=== PATIENT | male | born 1940 | race Caucasian/White ===

== ENCOUNTER 2019-04-27 16:38 | Inpatient (IN) | payer OTHER, MEDICARE ==
[~2019-04-27] VITALS: Ht 185.4 cm; Wt 101.6 kg
[2019-04-27 16:38] VITALS: BP_SYST 111
--- NOTE | 2019-04-27 16:38 | NUR ---
BROUGHT IN BY [facility], PLACED IN BED #3 AND TRIAGED. PT IS POOR HISORIAN AND SLOW TO RESPOND. REPORT GIVEN TO KEVIN
--- NOTE | 2019-04-27 16:40 | NUR ---
Pt bib EMS from home c/o ALOC and lethargy.Pt has elevated temp. Pt slow to respond to question , however follows commands.
[2019-04-27] MEDS ORDERED: ACETAMINOPHEN 650 MG SUPP.RECT RC ONE (17:00)
[2019-04-27] MEDS ORDERED: NS 1000 ML IV.SOLN IV ONE (17:00)
[2019-04-27 17:17] LABS: BASOPHILS % (AUTO) 0.5 % (0.0-2.0); EOSINOPHILS # (AUTO) 0.1 K/uL (0.0-0.4); EOSINOPHILS % (AUTO) 1.8 % (0.0-4.0); HEMATOCRIT 38.8 % (36-54); HEMOGLOBIN 13.3 g/dL (14.0-18.0); LYMPHOCYTES # (AUTO) 0.1 K/uL (1.0-5.5); LYMPHOCYTES % (AUTO) 1.9 % (20.5-51.5); MEAN CORPUSCULAR HEMOGLOBIN 34 pg (27-31); MEAN CORPUSCULAR HGB CONC 34 % (32-36); MEAN CORPUSCULAR VOLUME 99 fL (79.0-98.0); MONOCYTES # (AUTO) 0.3 K/uL (0.0-1.0); MONOCYTES % (AUTO) 4.2 % (1.7-9.3); NEUTROPHILS # (AUTO) 6.5 K/uL (1.8-7.7); NEUTROPHILS % (AUTO) 91.6 % (40.0-70.0); PLATELET COUNT (AUTO) 151 K/uL (130-430); RED BLOOD CELL COUNT(AUTO) 3.92 MIL/uL (4.2-6.2); RED CELL DISTRIBUTION WIDTH 13.4 % (9.0-15.0); WHITE BLOOD COUNT (AUTO) 7.1 K/uL (4.8-10.8)
[2019-04-27 17:26] LABS: ANION GAP 13 (5-15); CALCIUM 9.3 mg/dL (8.4-11.0); CHLORIDE 103 mmol/L (98-107); GLUCOSE 134 mg/dL (70-99); POTASSIUM 3.4 mmol/L (3.5-5.1); SODIUM SERUM 139 mmol/L (136-145); UREA NITROGEN, BLOOD 21 mg/dL (8-21)
[2019-04-27 17:32] LABS: ALANINE AMINOTRANSFERASE 17 U/L (12-78); ALBUMIN 3.6 g/dL (3.4-4.8); ASPARTATE AMINOTRANSFERASE 16 U/L (10-37); TOTAL BILIRUBIN 0.9 mg/dL (0.0-1.0)
--- NOTE | 2019-04-27 17:46 | NUR ---
Patient transported to radiology via gurney, accompanied by rad staff.
--- NOTE | 2019-04-27 17:51 | NUR ---
Returned from radiology, back to [facility].
--- NOTE | 2019-04-27 18:20 | NUR ---
Pt medicated with ABX.
[2019-04-27 18:43] LABS: BILIRUBIN,URINE NEGATIVE (NEGATIVE); BLOOD, URINE 2+ (NEGATIVE); CLARITY/URINE SL HAZY (CLEAR); COLOR,URINE YELLOW (YELLOW); GLUCOSE,URINE NEGATIVE (NEGATIVE); KETONES,URINE NEGATIVE (NEGATIVE); LEUKOCYTE ESTERASE ,URINE 2+ (NEGATIVE); NITRITE, URINE NEGATIVE (NEGATIVE); PH,URINE 5.5 (5.0-8.0); PROTEIN URINE NEGATIVE (NEGATIVE); UROBILINOGEN,URINE 0.2 (0.2-1.0)
[2019-04-27] MEDS ORDERED: PIPERACILLIN/TAZO 3.375 GM in NS 50 ML IV ONE (18:45)
[2019-04-27] MEDS ORDERED: VANCOMYCIN HCL 1,000 MG in NS 250 ML IV ONE (18:45)
[2019-04-27 19:00] LABS: BACTERIA,URINE FEW /HPF (None Seen); WBC,URINE 20-50 /HPF (0-3)
[2019-04-27 19:01] LABS: COARSE GRANULAR CASTS,URINE 0-10 /LPF (None Seen); MUCUS,URINE 1+ /LPF (None Seen)
[2019-04-27 19:02] LABS: BARBITURATE, URINE NEGATIVE (NEG <=200); BENZODIAZEPINE, URINE POSITIVE (NEG <=150); CANNABINOID, URINE NEGATIVE (NEG <=50); COCAINE, URINE NEGATIVE (NEG <=150); METHAMPHETAMINES SCREEN,URINE NEGATIVE (NEG <=500); OPIATE, URINE NEGATIVE (NEG <=100); PHENCYCLIDINE SCREEN,URINE NEGATIVE (NEG <=25); UR TRICYCLIC ANTIDEPRESSANTS NEGATIVE (NEG <=300); URINE AMPHETAMINE NEGATIVE (NEG <=500); URINE METHADONE NEGATIVE (NEG <=200); URINE OXYCODONE SCREEN NEGATIVE (NEG <=100); URINE PROPOXYPHENE SCREEN NEGATIVE (NEG <=300)
[2019-04-27] MEDS ORDERED: VANCOMYCIN HCL 1000 MG/VIAL IV ONE (19:11)
[2019-04-27] MEDS ORDERED: PIPERACILLIN/TAZOBACTAM 3.375 GM/VIAL (ZOSYN) IV ONE (19:12)
[2019-04-27] MEDS ORDERED: ASPI-1155 PO (19:25)
[2019-04-27] MEDS ORDERED: MIRA25TA PO (19:25)
[2019-04-27] MEDS ORDERED: LYR50 PO (19:25)
[2019-04-27] MEDS ORDERED: DULO60CA41 PO (19:25)
[2019-04-27] MEDS ORDERED: HYDR25TA4 PO (19:25)
[2019-04-27] MEDS ORDERED: NEBI5TAB3 PO (19:25)
--- NOTE | 2019-04-27 19:30 | NUR ---
Transfer to Telemetry via ACLS protocol. Licensed nurse present. IV present no signs or symptoms of infiltration.
--- NOTE | 2019-04-27 19:30 | NUR ---
Patient will be admitted to care of Dr. Limon. Admitted to Telemetry unit. Will go to room 105 B. Belongings list completed. Summary report printed. Report will be given at bedside.
--- NOTE | 2019-04-27 19:49 | NUR ---
ADMISSION NOTE Received patient from ER via gurney. Patient admitted with diagnosis of UTI & Urosepsis. Patient is awake, alert, oriented X 2. Patient oriented to hospital room, call light, toileting, pain management and safety-teach back done. Patient informed that PHOENIX Pérez will be primary nurse and that their room number is 105B. Personal belongings checked and Belongings List documented. Call light within reach.
[2019-04-27 19:50] VITALS: BP_SYST 114
--- NOTE | 2019-04-27 20:00 | NUR ---
INITIAL NOTE RECEIVED PATIENT AWAKE, ALERT BUT CONFUSED. FAMILY AT THE BEDSIDE. NO SOB NOTED. DENIES ANY PAIN OR N/V AT THIS TIME. UNABLE TO OBTAIN INFORMATION, WILL WAIT FOR PATIENT'S . RED DISCOLORATION NOTED ON LEFT GARCIA AND SACRAL REDNESS. TOOK PHOTO AND DOCUMENTED. ASSESSMENT DONE. BELONGINGS NOTED. F/C INTACT AND DRAINING WELL WITH ANEL COLORED URINE. ORIENTED TO ROOM, CALL LIGHT, HOSPITAL POLICIES, SAFETY AND FALL PRECAUTIONS. CALL LIGHT WITHIN REACH. BED ALARM ON AND AT LOWEST POSITION AT ALL TIMES. CARE AND MONITORING WILL BE PROVIDED. NEEDS ATTENDED. KEPT WARM AND COMFORTABLE.
--- NOTE | 2019-04-27 21:40 | NUR ---
IV OUT PATIENT PULLED OUT HIS IV LINE. PT NOT AWARE OF WHAT HAPPENED. NEW IV LINE PLACED ON LEFT HAND AND COVERED WITH KERLIX. PATIENT'S ARRIVED AND ABLE TO OBTAIN INFORMATION.
[2019-04-27] MEDS ORDERED: ONDANSETRON HCL 4 MG/2 ML VIAL IVP PRN (21:45)
[2019-04-27] MEDS ORDERED: KCL 20 mEq in 100 mL (PREMIX) 100 ML IV SCH (22:15)
[2019-04-27 22:18] VITALS: BP_SYST 114
--- NOTE | 2019-04-27 22:20 | NUR ---
MD ORDERS MD ORDERS NOTED. STARTED IVF AND DUE MEDS GIVEN. PATIENT'S AT THE BEDSIDE. ACCORDING TO THE , PATIENT IS ALERT AND ORIENTED AND HIS MIND IS SHARP PRIOR TO THIS ADMISSION. MADE HER AWARE OF THE PLAN TONIGHT AND TOMORROW. REPOSITIONED. KEPT WARM AND COMFORTABLE.
[2019-04-27] MEDS: FAMOTIDINE PF 20 MG/2 ML VIAL IVP SCH (22:23)
[2019-04-27] MEDS: NACL 0.9% 1,000 ML IV SCH (22:37)
--- NOTE | 2019-04-28 00:30 | NUR ---
RN NOTE PATIENT SLEEPING AT THIS TIME. NO SOB OR GRIMACING NOTED. IVF INFUSING.
[2019-04-28 00:47] VITALS: BP_SYST 143
[2019-04-28] MEDS ORDERED: PIPERACILLIN/TAZOBACTAM 2.25 GM VIAL IV ONE (01:22)
--- NOTE | 2019-04-28 01:30 | NUR ---
RN NOTE ASLEEP BUT EASILY AROUSABLE. NO COMPLAINTS AT THIS TIME. IV ANTIBIOTIC GIVEN ORDERED. REPOSITIONED. KEPT WARM AND COMFORTABLE.
[2019-04-28] MEDS: PIPERACILLIN/TAZO 2.25G/DEX-IS 50 ML IV SCH ×2 (01:40→06:26)
--- NOTE | 2019-04-28 04:00 | NUR ---
RN NOTE SLEEPING COMFORTABLY IN BED. NOT IN ACUTE DISTRESS. IVF INFUSING.
--- NOTE | 2019-04-28 05:36 | NUR ---
SWALLOW EVAL SWALLOW EVALUATION CALLED LEFT A MESSAGE ON SURYA'S ANSWERING MACHINE HER PHONE NUMBER: [phone]
--- NOTE | 2019-04-28 06:11 | NUR ---
END NOTE AFEBRILE. VS STABLE. NO COMPLAIN OF PAIN, SOB OR N/V THROUGHOUT THE NIGHT. PATIENT HAVE PERIODS OF CONFUSION. FOR AM LABS AND SWALLOW EVAL TODAY. NPO. IVF INFUSING. DRESSING ON LEFT GARCIA CDI. GOOD URINE OUTPUT ALL NIGHT. REPOSITIONED. HEELS OFF BED. CARE AND MONITORING PROVIDED PER PROTOCOL. CALL LIGHT WITHIN REACH. BED ALARM ON AND AT LOWEST POSITION AT ALL TIMES. NEEDS ATTENDED. KEPT CLEAN, DRY AND COMFORTABLE. DNR FORM NOT SIGNED BY MD YET. PATIENT AND PATIENT'S WISH FOR HIM TO BE DNR. WILL ENDORSE.
[2019-04-28 06:21] LABS: BASOPHILS % (AUTO) 0.5 % (0.0-2.0); EOSINOPHILS % (AUTO) 1.1 % (0.0-4.0); HEMATOCRIT 35.5 % (36-54); HEMOGLOBIN 12.2 g/dL (14.0-18.0); LYMPHOCYTES # (AUTO) 0.2 K/uL (1.0-5.5); LYMPHOCYTES % (AUTO) 4.4 % (20.5-51.5); MEAN CORPUSCULAR HEMOGLOBIN 35 pg (27-31); MEAN CORPUSCULAR HGB CONC 34 % (32-36); MEAN CORPUSCULAR VOLUME 100 fL (79.0-98.0); MONOCYTES # (AUTO) 0.3 K/uL (0.0-1.0); MONOCYTES % (AUTO) 6.6 % (1.7-9.3); NEUTROPHILS # (AUTO) 3.6 K/uL (1.8-7.7); NEUTROPHILS % (AUTO) 87.4 % (40.0-70.0); PLATELET COUNT (AUTO) 120 K/uL (130-430); RED BLOOD CELL COUNT(AUTO) 3.55 MIL/uL (4.2-6.2); RED CELL DISTRIBUTION WIDTH 13.7 % (9.0-15.0); WHITE BLOOD COUNT (AUTO) 4.1 K/uL (4.8-10.8)
[2019-04-28 06:34] LABS: ALANINE AMINOTRANSFERASE 22 U/L (12-78); ALBUMIN 3.1 g/dL (3.4-4.8); ANION GAP 11 (5-15); ASPARTATE AMINOTRANSFERASE 25 U/L (10-37); CALCIUM 8.6 mg/dL (8.4-11.0); CHLORIDE 105 mmol/L (98-107); CREATININE 1.71 mg/dL (0.55-1.30); GLUCOSE 121 mg/dL (70-99); POTASSIUM 3.5 mmol/L (3.5-5.1); SODIUM SERUM 141 mmol/L (136-145); THYROID STIMULATING HORMONE 0.28 uIu/mL (0.36-3.74); TOTAL BILIRUBIN 1.1 mg/dL (0.0-1.0); UREA NITROGEN, BLOOD 20 mg/dL (8-21)
[2019-04-28] MEDS: IPRATROPIUM/ALBUTEROL SULFATE 3 ML AMPUL.NEB (DUONEB) INH SCH ×3 (07:30→22:00)
[2019-04-28 07:50] VITALS: BP_SYST 112
--- NOTE | 2019-04-28 08:00 | NUR ---
OPENING NOTES RECEIVED PT IN BED, PT IS AAOX2, NO C/O OF PAIN, NO SOB, NO RESP DISTRESS. IV ACCESS INTACT AND PATENT. IV FLUIDS INFUSING WELL. SAFETY PRECAUTION IN PLACE. CALL LIGHT IN REACH. BED IN LOW POSITION. BED ALARM ON. ENCOURAGED TO CALL FOR ASSIST AND PAIN MED. WILL CONT TO MONITOR.
[2019-04-28] MEDS: ACETAMINOPHEN 650 MG SUPP.RECT RC PRN ×2 (08:58→22:50)
--- NOTE | 2019-04-28 08:58 | NUR ---
PATIENT GIVEN TYLENOL SUPP FOR FEVER OF 100.8, PT TOLERATED WELL , IV FLUIDS INFUSING WELL. WILL CONT TO MONITOR.
--- NOTE | 2019-04-28 10:00 | NUR ---
Nutrition Update Felipe Scale 15 noted. Pt admitted for UTI and urosepsis. Diet: NPO BMI: 31.6 kg/m2 RD to follow per nutrition care standards.
[2019-04-28] MEDS: NACL 0.9% 1,000 ML IV SCH ×2 (10:03→13:47)
--- NOTE | 2019-04-28 11:23 | NUR ---
DR CARTER HERE AND SEEN PT.
[2019-04-28 13:04] VITALS: BP_SYST 93
--- NOTE | 2019-04-28 13:14 | NUR ---
DR BILLY CALLED BACK AND SAID SINCE PT IS ALERT NOW WE CAN PUT HIM ON 2GNA DIET. ORDERS CARRIED OUT. CALL KITCHEN.
[2019-04-28] MEDS: cefTRIAXone 1 GM in D5W 50 ML IV SCH (13:30)
[2019-04-28] MEDS ORDERED: ASPIRIN 81 MG TAB.CHEW PO ONE (14:00)
[2019-04-28] MEDS ORDERED: DULoxetine HCL 30 MG CAPSULE.DR (CYMBALTA) PO ONE (14:00)
[2019-04-28] MEDS ORDERED: PREGABALIN 25 MG CAPSULE (LYRICA) PO ONE (14:00)
--- NOTE | 2019-04-28 14:41 | NUR ---
S.T. SWALLOW EVAL SWALLOW EVAL COMPLETED. PT PRESENTS W/ FUNCTIONAL OROPHARYNGEAL SWALLOW W/ NO S/S OF ASPIRATION. REC: CONTINUE CURRENT REGULAR TEXTURED DIET. THIN LIQUIDS OK. NURSE DANIKA NOTIFIED. [id number] CH [id number] NOMS LEVEL 7
--- NOTE | 2019-04-28 15:28 | NUR ---
Dietitian Recommendations * Recommend continuing regular diet * Adhere to pt food preferences (no red meat) KENDALL HARPER Please refer to Nutrition Assessment for details. Addendum: 04/28/19 at [address] Amended: Links added.
--- NOTE | 2019-04-28 16:00 | NUR ---
PATIENT'S DTR , A MSN\, FROM [place] UPDATED WITH PT'S CONDITION, GIVEN INFO OKAYED BY PATIENT.
--- NOTE | 2019-04-28 16:45 | NUR ---
PAGED DR HOLLEY AND DR BILLY: 1. DR MEYER FOR PT'S DAUGHTER CONCERN ABT PT HAD EPISODE OF SYMPTOMATIC TAYE DURING P.T. A COUPLE OF TIMES. WANTED TO CHECK IF MD WILL CONSIDER CARDIO CONSULT. 2. DR HOLLEY FOR PT'S DAUGHTER CONCERN ABT PT HAVING PO BACTRIM BEFORE ADMISSION TO HOSPITAL WHICH MAY HAVE SKEWED THE RESULTS OF TEST AND DIAGNOSIS.
[2019-04-28 17:01] VITALS: BP_SYST 98
--- NOTE | 2019-04-28 17:42 | NUR ---
DR BILLY CALLED BACK AND INFORMED PT'S DAUGHTER CONCERN RE#1. EPISODE OF BRADYCARDIA OUTSIDE OF HOSP AND WANTED TO CHECK IF MD WILL CONSIDER CARDIO CONSULT, SAID NO SINCE PT DID NOT HAVE ANY ACUTE EPISODE THIS TIME, ALSO ASK MD IF SHE WANTS TO CONTINUE PT'S OWN MED , DEEPA, SAID NO BEC PT HAS A GOETZ AT THIS TIME. MD ORDERED FOR CONTINUATION OF GOETZ AND SCD.
--- NOTE | 2019-04-28 18:44 | NUR ---
CLOSING NOTES, PT HAD EPISODE OF SLIGHT FEVER THIS AM, GIVEN TYLENOL WITH GOOD RELIEF, PT AMBULATED WITH PT, ALSO AMBULATED WITH RN THIS PM AND HAD BM, PT NOTED TO BE IMPULSIVE WITH WALKING, PT IS STILL WOBLY WHEN STANDING. TOLD PT TO STAY IN BED AND DO NOT GET OUT OF BED UNLESS ASSISTED WITH NURSES. BED ALARM ON, CALL LIGHT IN REACH. PT AT BEDSIDE. INFORMED THAT MD IS NOT RESUMING BLADDER MEDICATION AND WILL CONT TO MONITOR PT RE TAYE CARDIA. WILL ENDORSE TO NIGHT RN.
[2019-04-28 20:00] VITALS: BP_SYST 130
[2019-04-28] MEDS: FAMOTIDINE PF 20 MG/2 ML VIAL IVP SCH (22:35)
--- NOTE | 2019-04-28 22:50 | NUR ---
COMPLAIN OF MILD HEADACHE. TYLENOL SUPPOSITORY GIVEN RECTALLY. NO ACUTE DISTRESS.
[2019-04-29 00:16] VITALS: BP_SYST 112
[2019-04-29] MEDS: NACL 0.9% 1,000 ML IV SCH ×2 (03:13→17:06)
[2019-04-29] MEDS: IPRATROPIUM/ALBUTEROL SULFATE 3 ML AMPUL.NEB (DUONEB) INH SCH ×3 (06:00→23:28)
--- NOTE | 2019-04-29 06:30 | NUR ---
CLOSING: ALL NEEDS WERE MET. NO ACUTE DISTRESS. URINE STILL DARK ANEL . SLEPT AT LONG INTERVALS.
[2019-04-29 06:32] LABS: ANION GAP 9 (5-15); CALCIUM 8.3 mg/dL (8.4-11.0); CHLORIDE 108 mmol/L (98-107); CREATININE 1.44 mg/dL (0.55-1.30); GLUCOSE 125 mg/dL (70-99); POTASSIUM 3.6 mmol/L (3.5-5.1); SODIUM SERUM 142 mmol/L (136-145); UREA NITROGEN, BLOOD 20 mg/dL (8-21)
--- NOTE | 2019-04-29 07:40 | NUR ---
AM NOTES- In bed, awake alert and oriented. denies any chest pain or shortness of breath. Has ziegler catheter draining shantell urine. Afebrile. IVF infusing well. Safety precaution observed. Call light within reach. Enc to terri for help as needed. pt verbalize understanding. will monitor.
[2019-04-29 08:11] VITALS: BP_SYST 122
[2019-04-29] MEDS: ASPIRIN 81 MG TAB.CHEW PO SCH (08:35)
[2019-04-29] MEDS: DULoxetine HCL 30 MG CAPSULE.DR (CYMBALTA) PO SCH (08:35)
[2019-04-29] MEDS: PREGABALIN 25 MG CAPSULE (LYRICA) PO SCH (08:35)
--- NOTE | 2019-04-29 10:58 | NUR ---
notes- In bed, watching tv. Denies any pain or discomfort. Pt ambulate with front wheel walker with the therapy in the hallway earlier. pt tolerated well.
[2019-04-29 12:00] VITALS: BP_SYST 122
--- NOTE | 2019-04-29 14:06 | NUR ---
Notes- In bed, watching tv. family at bedside. Denies any pain or discomfort.
[2019-04-29] MEDS: cefTRIAXone 1 GM in D5W 50 ML IV SCH (14:23)
--- NOTE | 2019-04-29 15:20 | NUR ---
Seen by Dr. payne at bedside and ordered to remove Dowell.
[2019-04-29] MEDS ORDERED: ACETAMINOPHEN 325 MG TABLET PO PRN (15:30)
--- NOTE | 2019-04-29 15:30 | NUR ---
ziegler removed at this time with 1100 output. Enc pt to call if he needs to use bathroom. Pt verbalize understanding.
[2019-04-29 16:51] VITALS: BP_SYST 103
--- NOTE | 2019-04-29 18:37 | NUR ---
Notes- In bed, eating dinner. No urgency to void at this time since ziegler was removed. Enc. patient to call if he needs to go to the bathroom. Denies any pain. IVF infusing well. All needs meet. will endorse
[2019-04-29 19:45] VITALS: BP_SYST 121
--- NOTE | 2019-04-29 19:45 | NUR ---
INITIAL NOTES AT INITIAL ASSESSMENT, PATIENT IS RESTING IN BED, STABLE, NO SIGNS OF RESPIRATORY DISTRESS. IS AT BEDSIDE. PATIENT VERBALIZES NO PAIN. BED IS LOCKED, ALARMED, AND AT THE LOWEST LEVEL. FALL, SAFETY, RESPIRATORY, AND ASPIRATION PRECAUTIONS WILL BE TAKEN THROUGHOUT THE SHIFT.
[2019-04-29] MEDS: FAMOTIDINE PF 20 MG/2 ML VIAL IVP SCH (21:33)
--- NOTE | 2019-04-29 21:45 | NUR ---
NOTE PATIENT IS RESTING IN BED, STABLE, NO SIGNS OF RESPIRATORY DISTRESS. CALL LIGHT IS WITHIN REACH. BED IS LOCKED, ALARMED, AND AT THE LOWEST LEVEL.
--- NOTE | 2019-04-29 23:45 | NUR ---
NOTE PATIENT IS SLEEPING, STABLE, NO SIGNS OF RESPIRATORY DISTRESS. CALL LIGHT IS WITHIN REACH. BED IS LOCKED, ALARMED, AND AT THE LOWEST LEVEL.
[2019-04-30 00:05] VITALS: BP_SYST 125
--- NOTE | 2019-04-30 01:45 | NUR ---
NOTE PATIENT IS SLEEPING, STABLE, NO SIGNS OF RESPIRATORY DISTRESS. CALL LIGHT IS WITHIN REACH. BED IS LOCKED, ALARMED, AND AT THE LOWEST LEVEL.
--- NOTE | 2019-04-30 03:45 | NUR ---
PATIENT ASSISTED TO THE BATHROOM PATIENT ASSISTED TO THE BATHROOM, HE IS NOTED WITH STEADY GAIT USING ONLY IV POLE FOR ASSIST. PATIENT IS REPOSITIONED BACK INTO BED FOR COMFORT. HE IS STABLE, NO SIGNS OF RESPIRATORY DISTRESS. CALL LIGHT IS WITHIN REACH. BED IS LOCKED, ALARMED, AND AT THE LOWEST LEVEL.
--- NOTE | 2019-04-30 05:45 | NUR ---
NOTE PATIENT IS SLEEPING, STABLE, NO SIGNS OF RESPIRATORY DISTRESS. CALL LIGHT IS WITHIN REACH. BED IS LOCKED, ALARMED, AND AT THE LOWEST LEVEL.
[2019-04-30] MEDS: IPRATROPIUM/ALBUTEROL SULFATE 3 ML AMPUL.NEB (DUONEB) INH SCH ×2 (06:00→14:00)
--- NOTE | 2019-04-30 06:38 | NUR ---
CLOSING NOTE PATIENT SLEPT WELL THROUGHOUT THE SHIFT. AT THIS TIME, PATIENT IS STABLE, NO SIGNS OF RESPIRATORY DISTRESS. CALL LIGHT IS WITHIN REACH. BED IS LOCKED, ALARMED, AND AT THE LOWEST LEVEL. FALL, SAFETY, AND RESPIRATORY PRECAUTIONS HAVE BEEN TAKEN THROUGHOUT THE SHIFT. WILL CONTINUE TO MONITOR UNTIL SHIFT REPORT IS GIVEN AT BEDSIDE TO AM NURSE.
[2019-04-30 08:09] VITALS: BP_SYST 130
[2019-04-30] MEDS: DULoxetine HCL 30 MG CAPSULE.DR (CYMBALTA) PO SCH (08:15)
[2019-04-30] MEDS: ASPIRIN 81 MG TAB.CHEW PO SCH (08:15)
[2019-04-30] MEDS: PREGABALIN 25 MG CAPSULE (LYRICA) PO SCH (08:15)
--- NOTE | 2019-04-30 09:00 | NUR ---
Mobility Ambulate by the physical therapy using cane in the hallway,tolerates well with out dizziness., safety/fall precaution initiated and instructed verbalized understanding.
--- NOTE | 2019-04-30 09:28 | NUR ---
GI/education Patient has loose stool since morning 3x denies abdominal pain, proper handwashing instructed encouraged to increase oral fluid intake verbalized understanding ,on IV hydration , Paged Dr. Limon Addendum: 04/30/19 at 1006 by Eli Cordero RN Dr. Limon informed will collect specimen for analysis , patient instructed.
[2019-04-30] MEDS: NACL 0.9% 1,000 ML IV SCH ×2 (12:03→12:24)
--- NOTE | 2019-04-30 12:11 | NUR ---
Received report from Eli who endorsed patient to me, patient is currently taking a shower, is in the room.
[2019-04-30] MEDS: cefTRIAXone 1 GM in D5W 50 ML IV SCH (12:24)
[2019-04-30 12:35] VITALS: BP_SYST 145; BP_SYST 98
[2019-04-30 13:06] VITALS: BP_SYST 98
--- NOTE | 2019-04-30 13:13 | NUR ---
IV pulled out patient does not want another IV started again at this time unless his discharged gets held.
[2019-04-30] MEDS ORDERED: LOPERAMIDE HCL 2 MG CAPSULE PO ONE (14:30)
--- NOTE | 2019-04-30 15:00 | NUR ---
Imodium one time imodium give to patient, educated on medication use and side effects, patient verbalized understanding, no other needs at this time, fall/safety precautions in place.
[2019-04-30 17:10] VITALS: BP_SYST 145
--- NOTE | 2019-04-30 17:34 | NUR ---
spoke to Dr Limon in regards to patient still having diarrhea and abdominal discomfort, okayed for patient to stay over night, I informed patient about this and I asked him if I can put an IV in him for IV fluids running, but patient refused for me to out another IV in him. Addendum: 04/30/19 at 1751 by Alejandra Lopez RN called Dr Limon back in regards to patient changing his mind and wanting to leave tonight, Dr Limon okayed it.
--- NOTE | 2019-04-30 18:12 | NUR ---
D/C Patient Patient given medication reconciliation form and D/C instructions. Exit Care provided. Patient verbalized understanding. MD discussed with patient the results and treatment provided. Ambulatory with steady gait for discharge to home. Patient in stable condition, ID band removed. IV catheter removed, intact and dressing applied, no active bleeding. Rx was faxed to preferred pharmacy. Patient educated on pain management. All belongings sent with patient.
[2019-04-30] MEDS ORDERED: LACTOBACILLUS RHAMNOSUS GG 1 CAP CAPSULE PO SCH (21:00)
--- NOTE | 2019-05-23 15:32 | NUR ---
Discharge Follow Up Call: SS attempted to phone pt on 05/18 and left voicemail but no call back received. No further call needed at this time.
== END 2019-04-30 18:12 | disposition home or self-care (01) | DRG 682 ==
LOC: SED 16:38 → STU 19:19 → SMU 04-29 21:32
PROVIDERS: ADMIT Internal Medicine; ATTEND Internal Medicine
DX: N17.0 Acute kidney failure with tubular necrosis (principal); G93.41 Metabolic encephalopathy; J18.9 Pneumonia, unspecified organism; N10 Acute pyelonephritis; I25.10 Atherosclerotic heart disease of native coronary artery without angina pectoris; R73.9 Hyperglycemia, unspecified; I10 Essential (primary) hypertension; E87.6 Hypokalemia; B96.20 Unspecified Escherichia coli [E. coli] as the cause of diseases classified elsewhere; B96.89 Other specified bacterial agents as the cause of diseases classified elsewhere; S81.809A Unspecified open wound, unspecified lower leg, initial encounter; X58.XXXA Exposure to other specified factors, initial encounter; Y93.89 Activity, other specified; Y92.89 Other specified places as the place of occurrence of the external cause; Y99.8 Other external cause status; Z79.82 Long term (current) use of aspirin; Z85.46 Personal history of malignant neoplasm of prostate
CPT/HCPCS: 36415; 70450-TC; 71045; 76770; 80048; 80053; 80307; 81000-TC; 82140-TC; 83605; 83735-TC; 83880; 84439; 84443-TC; 84484; 85025; 87040-TC; 87086; 87186-TC; 87230-TC; 92610-GN; 93005; 94640; 94760; 96361; 96365; 96367; 97116-GP; 97530-GP; 99285; G0378; G0482; J0696; J2543; J3370; J3480; J3490; J7030; J7060; J7620